=== PATIENT | male | born 1965 | race Caucasian/White ===

== ENCOUNTER 2017-01-07 05:47 | Day surgery (SDC) | payer MEDICAID ==
[~2017-01-07 05:47] MED LIST: LIDOCAINE 1% 2 ML INJ ONE; OXYMETAZOLINE 30 ML NASAL SPRAY EACHNARE PRN
[2017-01-07] MEDS ORDERED: OXYMETAZOLINE 30 ML NASAL SPRAY EACHNARE ONE (06:00)
[2017-01-07] MEDS ORDERED: LIDOCAINE 1% 2 ML INJ ONE (06:14)
[2017-01-07] MEDS ORDERED: DEXAMETHASONE 4 MG/ML VIAL ONE ×2 (06:15→06:59)
[2017-01-07] MEDS ORDERED: WATER FOR INJ.,BACTERIOSTATIC 30 ML MDV ONE (06:15)
[2017-01-07] MEDS ORDERED: LIDO/EPI 1% **Not for Epidural 20 ML MDV ONE (06:16)
[2017-01-07] MEDS ORDERED: LR 1,000 ML IV ONE (06:44)
[2017-01-07] MEDS ORDERED: LIDOCAINE 1% 5 ML SDV ID PRN (06:44)
[2017-01-07] MEDS ORDERED: PROPOFOL 200 MG/20 ML VIAL ONE (06:58)
[2017-01-07] MEDS ORDERED: ROCURONIUM 50 MG/5 ML VIAL ONE (06:59)
[2017-01-07] MEDS ORDERED: METOCLOPRAMIDE 10 MG/2 ML VIAL ONE (06:59)
[2017-01-07] MEDS ORDERED: LIDOCAINE 2% 100 MG/5 ML SYR ONE (06:59)
[2017-01-07] MEDS ORDERED: CLINDAMYCIN 600 MG/DEXTROSE 50 ML IV ONE (07:00)
[2017-01-07] MEDS ORDERED: MIDAZOLAM 2 MG/2 ML VIAL ONE (07:07)
[2017-01-07] MEDS ORDERED: GLYCOPYRROLATE 0.2 MG/1 ML VIAL ONE (07:48)
[2017-01-07] MEDS ORDERED: SUGAMMADEX SODIUM 200 MG/2 ML VIAL IVP ONE (09:00)
[2017-01-07] MEDS ORDERED: LABETALOL HCL 5 MG/ML 20 ML MDV ONE (09:04)
[2017-01-07] MEDS ORDERED: TRIAMCINOLONE ACETONIDE 40 MG/ML VIAL ONE (09:07)
[2017-01-07] MEDS ORDERED: oxyCODONE IR 5 MG TAB PO PRN ×2 (10:17→10:18)
[2017-01-07] MEDS ORDERED: ACETAMINOPHEN 325 MG TAB PO PRN (10:17)
[2017-01-07] MEDS ORDERED: OXYCODONE/APAP 5/325 TAB ONE (10:58)
--- NOTE | 2017-01-07 15:25 | GOP ---
[f rep st] OPERATIVE REPORT DATE OF OPERATION: 01/07/2017 SURGEON: Debbie Lara MD BALLISTICS EXPERT: None. ANESTHESIA: General endotracheal. PREOPERATIVE DIAGNOSIS: 1. Deviated nasal septum. 2. Chronic rhinosinusitis. 3. Turbinate hypertrophy. POSTOPERATIVE DIAGNOSIS: 1. Deviated nasal septum. 2. Chronic rhinosinusitis. 3. Turbinate hypertrophy. PROCEDURE PERFORMED: 1. Septoplasty. 2. Bilateral maxillary antrostomy with tissue removal. 3. Bilateral total ethmoidectomy. 4. Bilateral sphenoidotomy. 5. Bilateral submucosal resection, inferior turbinates. 6. Use of 3-dimensional navigation system. FINDINGS: SPECIMENS: Bilateral sinus content. ESTIMATED BLOOD LOSS: 100 mL. INDICATIONS: The patient is a 51-year-old male with a history of chronic rhinosinusitis. We had attempted to control him medically with antibiotics and steroids as well as nasal steroid sprays and another surgeon had performed a balloon sinuplasty, which provided approximately 6 months of relief, but he had recurrence of sinusitis documented on CT scan as well as purulence on nasal endoscopy. Risks, benefits, and alternatives of the above procedure were discussed. It was decided to proceed forward. DESCRIPTION OF PROCEDURE: Patient was met in the preoperative holding. Informed consent was confirmed. The patient was brought to the operating room. He underwent induction of general anesthesia. Placed an endotracheal tube without difficulty. He was rotated 180 degrees of the operating surgeon. The 3 -dimensional navigation [employer] system was then registered and confirmed to be accurate. 6 mL of 1% lidocaine in 100,00 epinephrine was infiltrated throughout his nasal septum bilaterally. Then he was widely prepped and draped in the standard fashion. Next, 0-degree rigid endoscope was used to examine each nasal passageway. He was significantly obstructed, greater than 80 to the right. 3 mL of 1% lidocaine to 100,000 epinephrine was infiltrated into the right middle turbinate and uncinate process at this point. Next, a hemitransfixion incision on the right side was made with a 15 blade scalpel and submucoperichondrial on the right side was elevated using a suction elevator. 15 blade scalpel was then used to transect the caudal septum, preserving 1 cm caudally and the suction elevator was then used to elevate the contralateral submucoperichondrial flap. Using a combination of the Axel swivel knife as well as the Sandra forceps, the remaining bony cartilaginous deviated septum was then removed while also preserving a greater than 1 cm dorsal strut. This significantly improved the nasal airway to the right. Additional lidocaine with epinephrine was infiltrated throughout the right middle turbinate and uncinate process. The middle turbinate was quite lateralized and attenuated due to the deviated septum. At this point, I turned my attention to the left side. The middle turbinate was medialized and the uncinate process was bisected using the backbiter. The superior portion of the uncinate process was then teased away from the eye using the secret elevator and then the upbiting Blakesley forceps were used to remove the remaining portion of the uncinate process. Next, a secret elevator was to enter the maxillary sinus and the remaining uncinate process was then down-fractured and medialized. A wide maxillary antrostomy was then created using a microdebrider as well as the straight Adair- Cut forceps. There was significant polypoid degenerative change throughout the lining of the maxillary sinus and this was removed with a curved microdebrider. Next, anterior ethmoidectomy was performed starting at the hiatus, semilunaris superioris, working my way medially, inferiorly to superolaterally to the level of the basal lamella. Then medially inferiorly, the basal lamella was transected using a Bowling tip suction. With 3-dimensional navigation, the posterior ethmoid to the level of the skull base was then also removed. Using a 3-dimensional navigational system, sphenoid sinuses were then entered and large sphenoidotomy was then created as well. The frontal recess was examined and some polypoid tissue was removed using the microdebrider, but otherwise was left untouched. I then turned my attention to the right side. In the same fashion, the middle turbinate was medialized and the uncinate process was bisected using the backbiting elevator. The superior of the uncinate process was teased away from the eye and then removed using the upbiting Blakesley forceps. Next, the secret elevator was then used to maxillary sinus and the remaining uncinate processes down-fractured. A large antrostomy was created using the microdebrider as well as the Adair-Cut forceps. Again, there was polypoid degenerative change throughout the maxillary sinus and this was debulked using the microdebrider. Next, anterior ethmoidectomy was performed starting at the hiatus, semilunaris superioris, working my way medially inferiorly superolaterally to the level of the basal lamella. Again, using the 3-dimensional navigation system posterior ethmoidectomy was then performed using the microdebrider to the level of the skull base. Next, sphenoid sinus through the ethmoid sinuses were then localized using the 3-dimensional navigation system and a large sphenoidotomy was then performed as well. At this point, each inferior turbinate was out- fractured and then stab incisions were made with 15 blade scalpel. Using a 2 mm microdebrider, submucosal resection of each inferior turbinate was then performed to the level of the choana. This significantly improved the nasal airway as well. At this point, the nose was suctioned free of any excess blood and Stammberger foam mixed with Kenalog was then placed into each middle meatus as was a hemostatic stent. At this point, the patient was turned back to Anesthesia for wake-up. At the end of this procedure, all sponge, needle, and instrument counts were correct. I personally performed all portions of this case. FLUIDS: 1 L of crystalloid. /[id number]/MODL MTDD
== END 2017-01-07 12:20 | disposition home or self-care (01) ==
LOC: FSGY 05:47
PROVIDERS: ATTEND Otolaryngology
DX: J34.2 Deviated nasal septum (principal); J32.9 Chronic sinusitis, unspecified; J34.3 Hypertrophy of nasal turbinates; E11.9 Type 2 diabetes mellitus without complications; I10 Essential (primary) hypertension
CPT/HCPCS: J1100; J2001; J2250; J2704; J2765; J3301; J3490

== ENCOUNTER 2017-01-13 16:48 | Emergency (ER) | payer MEDICAID ==
[2017-01-13 16:57] VITALS: TEMP 97.7
--- NOTE | 2017-01-13 19:33 | EDPHY ---
H & P Time Seen by Provider: 01/13/17 19:09 HPI/ROS: Chief complaint. Post surgery swelling HPI. 51-year-old male had sinus surgery on January 07. He had a septoplasty, bilateral maxillary antrostomy, bilateral total ethmoidectomy, bilateral sphenoidotomy, bilateral submucosal resection of the inferior turbinates. He has had some increased pain to his forehead and some swelling under the left eye. He was seen by Dr. mireles yesterday and started on doxycycline. Patient is concerned that he is not improving. No fever. No cough trouble breathing throat pain. No problem with vision ROS Constitutional. no fever/chills, no weakness Eyes. no problems with vision ENT. Forehead pain and some swelling and redness under the left eye Cardiovascular. no chest pain Respiratory. no shortness of breath, no cough Abdominal. no abdominal pain, no nausea/vomiting, no diarrhea . no problems urinating MS. no calf pain/swelling, no neck/back pain, no joint pain Skin. no rash Lymph. no swollen glands Neuro. no headache, no dizziness, no difficulty walking or with speech Past Medical/Surgical History: Past medical history significant for hypertension, GERD, diabetes Social History: Single, nonsmoker, no alcohol Smoking Status: Never smoked Physical Exam: General Appearance: Alert well-developed male mild distress vital signs are stable Eyes: Pupils equal and round no pallor or injection. Full range of motion of the eyes without restriction of gaze. Minimal to mild swelling under the left eye with slight redness to the skin ENT, tympanic membranes are normal. Pharynx without injection. No shows no evidence for septal hematoma. Tenderness to palpation on the forehead without significant swelling Respiratory: There are no retractions, lungs are clear to auscultation. Cardiovascular: Regular rate and rhythm. Gastrointestinal: Abdomen is soft and nontender, no masses, bowel sounds normal. Neurological: Awake and alert, sensory and motor exams grossly normal. Skin: Warm and dry, no rashes. Musculoskeletal: Neck is supple nontender. Extremities symmetrical, full range of motion. Psychiatric: Patient is oriented X 3, there is no agitation. Constitutional: Initial Vital Signs Temperature (C) 36.5 C 01/13/17 16:55 Heart Rate 70 01/13/17 16:55 Respiratory Rate 18 01/13/17 16:55 Blood Pressure 132/93 H 01/13/17 16:55 O2 Sat (%) 94 01/13/17 16:55 O2 Delivery Mode Room Air Allergies/Adverse Reactions: Penicillins Allergy (Verified 01/13/17 16:53) Home Medications: Medication Instructions Recorded Lisinopril [Zestril 20 mg (RX)] 20 mg PO DAILY 10/08/14 Omeprazole [Prilosec 20 mg] 20 mg PO DAILY 10/08/14 Metformin HCl 12/18/16 Doxycycline Calcium 01/13/17 Hydrocodone-Acetamin 5-163/7.5 01/13/17 Medical Decision Making - Diagnostics Imaging: Maxillofacial CT with IV contrast shows no evidence of abscess. The sinuses are opacified. No evidence for periorbital cellulitis Procedures: IV normal saline ED Course/Re-evaluation: I consulted and discussed the case with Dr. mireles. She will follow up with the patient in the office on . She will review the CT tonight and call the patient should there be change of treatment and see the patient in the office tomorrow Re-evaluation 9:30 p.m. patient is stable. The patient and I discussed imaging and lab results. We discussed treatment plan including criteria for return importance of follow-up and further evaluation. He expresses understanding and agreement Differential Diagnosis: I considered cellulitis, abscess, periorbital cellulitis - Data Points Laboratory Results: Laboratory Results 01/13/17 20:02 01/13/17 20:02 01/13/17 01/13/17 20:02 20:02 WBC 14.72 10^3/uL H 10^3/uL (3.80-9.50) RBC 5.20 10^6/uL 10^6/uL (4.40-6.38) Hgb 16.1 g/dL g/dL (13.7-17.5) Hct 45.9 % % (40.0-51.0) MCV 88.3 fL fL (81.5-99.8) MCH 31.0 pg pg (27.9-34.1) MCHC 35.1 g/dL g/dL (32.4-36.7) RDW 12.6 % % (11.5-15.2) Plt Count 242 10^3/uL 10^3/uL (150-400) MPV 9.8 fL fL (8.7-11.7) Neut % (Auto) 59.9 % % (39.3-74.2) Lymph % (Auto) 30.6 % % (15.0-45.0) [place] % (Auto) 7.3 % % (4.5-13.0) Eos % (Auto) 1.4 % % (0.6-7.6) Baso % (Auto) 0.3 % % (0.3-1.7) Nucleat RBC Rel Count 0.0 % % (0.0-0.2) Absolute Neuts (auto) 8.80 10^3/uL H 10^3/uL (1.70-6.50) Absolute Lymphs (auto) 4.51 10^3/uL H 10^3/uL (1.00-3.00) Absolute Monos (auto) 1.07 10^3/uL H 10^3/uL (0.30-0.80) Absolute Eos (auto) 0.21 10^3/uL 10^3/uL (0.03-0.40) Absolute Basos (auto) 0.05 10^3/uL 10^3/uL (0.02-0.10) Absolute Nucleated RBC 0.00 10^3/uL 10^3/uL (0-0.01) Immature Gran % 0.5 % % (0.0-1.1) Immature Gran # 0.08 10^3/uL 10^3/uL (0.00-0.10) Sodium 135 mEq/L mEq/L (134-144) Potassium 4.9 mEq/L mEq/L (3.5-5.2) Chloride 102 mEq/L mEq/L (97-110) Carbon Dioxide 19 mEq/l L mEq/l (22-31) Anion Gap 14 mEq/L mEq/L (8-16) BUN 21 mg/dL mg/dL (7-23) Creatinine 0.9 mg/dL mg/dL (0.7-1.3) Estimated GFR > 60 Glucose 284 mg/dL H mg/dL (70-100) Calcium 9.2 mg/dL mg/dL (8.5-10.4) Medications Given: Discontinued Medications Sodium Chloride (Ns) 1,000 mls @ 0 mls/hr IV ONCE ONE PRN Reason: Wide Open Stop: 01/13/17 19:41 Last Admin: 01/13/17 20:06 Dose: 1,000 mls Departure - Departure Disposition: Home, Routine, Self-Care Clinical Impression: Postop sinusitis Condition: Good Instructions: Sinusitis (ED) Additional Instructions: Continue the doxycycline is the antibiotic and oxycodone as needed for pain. Continue other regular medications. Dr. mireles will review the CT scan tonight and call you tomorrow should there be change of plan otherwise she would like to see you in the office on . Return sooner for worsening headache, fever. Referrals: John Brian MD [Primary Care Provider] - As per Instructions Debbie Mireles MD [Medical Doctor] - 1-2 days without fail
[2017-01-13] MEDS ORDERED: NS 1,000 ML IV ONE (19:40)
[2017-01-13 20:11] LABS: % IMMATURE GRANULYOCYTES 0.5 % (0.0-1.1); ABSOLUTE IMMATURE GRANULOCYTES 0.08 10^3/uL (0.00-0.10); ADD DIFF? NO; ADD MORPH? NO; ADD SCAN? NO; ATYPICAL LYMPHOCYTE FLAG 70 (0-99); FRAGMENT RBC FLAG 0 (0-99); HEMATOCRIT 45.9 % (40.0-51.0); HEMOGLOBIN 16.1 g/dL (13.7-17.5); LEFT SHIFT FLG 0 (0-99); LIPEMIA HEMOLYSIS FLAG 90 (0-99); MEAN CELL HEMOGLOBIN CONCENTR. 35.1 g/dL (32.4-36.7); MEAN CELL VOLUME 88.3 fL (81.5-99.8); MEAN PLATELET VOLUME 9.8 fL (8.7-11.7); PLATELET CLUMPS FLAG 10 (0-99); PLATELET COUNT 242 10^3/uL (150-400); RED CELL DISTRIBUTION WIDTH 12.6 % (11.5-15.2)
[2017-01-13] MEDS ORDERED: IOPAMIDOL (ISOVUE-300) 100 ML BTL IV ONE (20:32)
[2017-01-13 20:39] LABS: ANION GAP 14 mEq/L (8-16); CALCIUM 9.2 mg/dL (8.5-10.4); CARBON DIOXIDE 19 mEq/l (22-31); CHLORIDE 102 mEq/L (97-110); CREATININE 0.9 mg/dL (0.7-1.3); GLOMERULAR FILTRATION RATE > 60; GLUCOSE 284 mg/dL (70-100); POTASSIUM 4.9 mEq/L (3.5-5.2); SODIUM 135 mEq/L (134-144)
[2017-01-13 21:59] VITALS: BP 110/77; PULSE 59; RESP 16; O2SAT 92
== END 2017-01-13 21:58 | disposition home or self-care (01) ==
DX: R22.0 Localized swelling, mass and lump, head (principal); I10 Essential (primary) hypertension; E11.9 Type 2 diabetes mellitus without complications
CPT/HCPCS: Q9967